=== PATIENT | male | born 1995 | race Caucasian/White ===

== ENCOUNTER 2016-08-15 22:06 | Emergency (ER) | payer SELFPAY ==
[~2016-08-15] VITALS: Ht 188 cm; Wt 62.4 kg
[~2016-08-15 22:06] MED LIST: AUGMENTIN875 MG PO; NAPROXEN500 MG PO; NORCO 5/3251 TABLET PO
[2016-08-15 23:22] LABS: HEMATOCRIT 46.1 % (38.0-50.0); MCH 28.3 PG (29.0-34.0); MCHC 33.4 G/DL (30.0-36.0); MCV 84.6 FL (86-99); MEAN PLAT.VOLUME 9.3 uM^3 (9.0-12.4); PLATELET COUNT 392 K/uL (156-360); RBC DIS.WIDTH-CV 13.2 % (11.8-14.6); RBC DIS.WIDTH-SD 40.6 % (39-53); RED BLOOD COUNT 5.45 M/uL (4.00-5.50); WHITE BLOOD COUNT 9.6 K/uL (4.1-10.2)
[2016-08-15 23:32] LABS: CHLORIDE 105 mEq/L (99-109); POTASSIUM 3.8 mEq/L (3.7-5.4); SODIUM 142 mEq/L (136-147)
[2016-08-15 23:34] LABS: GLUCOSE 82 mg/dL (70-99)
[2016-08-15 23:35] LABS: ANION GAP 12 MEQ/L (2-14)
[2016-08-15 23:37] LABS: GFR ESTIMATE (CALCULATED) > 59 mL/min/
[2016-08-15 23:38] LABS: UREA NITROGEN (BUN) 11 mg/dL (9-23)
[2016-08-15 23:44] LABS: TROP-I INTERPRETATION NEGATIVE; TROPONIN-I < 0.01 ng/mL (0.0-0.30)
[2016-08-16] MEDS ORDERED: VENTOLIN HFA18 GM IH (01:52)
[2016-08-16] MEDS ORDERED: NAPROXEN500 MG PO (01:52)
[2016-08-16 01:58] VITALS: BP 175/107
[2016-08-16 02:13] LABS: TROP-I INTERPRETATION NEGATIVE; TROPONIN-I < 0.01 ng/mL (0.0-0.30)
== END 2016-08-16 02:04 | disposition home or self-care (01) ==
LOC: EME 22:06
DX: R07.89 Other chest pain (principal); R06.00 Dyspnea, unspecified; I10 Essential (primary) hypertension; Z82.49 Family history of ischemic heart disease and other diseases of the circulatory system; Z87.891 Personal history of nicotine dependence
CPT/HCPCS: 71020; 80048; 84484; 85027; 93005; 99281; 99284

== ENCOUNTER 2016-08-30 10:18 | Emergency (ER) | payer OTHER ==
[~2016-08-30] VITALS: Ht 188 cm; Wt 166.0 kg
[~2016-08-30 10:18] MED LIST changes: +VENTOLIN HFA18 GM IH
[2016-08-30 12:00] LABS: HEMATOCRIT 46.7 % (38.0-50.0); MCH 28.4 PG (29.0-34.0); MCHC 33.8 G/DL (30.0-36.0); MCV 83.8 FL (86-99); MEAN PLAT.VOLUME 9.3 uM^3 (9.0-12.4); PLATELET COUNT 411 K/uL (156-360); RBC DIS.WIDTH-CV 13.1 % (11.8-14.6); RBC DIS.WIDTH-SD 39.7 % (39-53); RED BLOOD COUNT 5.57 M/uL (4.00-5.50)
[2016-08-30 12:21] LABS: CHLORIDE 108 mEq/L (99-109); POTASSIUM 4.7 mEq/L (3.7-5.4); SODIUM 139 mEq/L (136-147)
[2016-08-30 12:21] LABS: TROP-I INTERPRETATION NEGATIVE; TROPONIN-I < 0.01 ng/mL (0.0-0.30)
[2016-08-30 12:22] LABS: GLUCOSE 159 mg/dL (70-99)
[2016-08-30 12:24] LABS: ANION GAP 7 MEQ/L (2-14)
[2016-08-30 12:26] LABS: GFR ESTIMATE (CALCULATED) > 59 mL/min/
[2016-08-30 12:27] LABS: UREA NITROGEN (BUN) 17 mg/dL (9-23)
[2016-08-30 13:09] VITALS: BP 150/88
== END 2016-08-30 13:10 | disposition home or self-care (01) ==
LOC: EME 10:18
PROVIDERS: Nurse Practitioner Family
DX: R07.9 Chest pain, unspecified (principal)
CPT/HCPCS: 71020; 80048; 84484; 85027; 93005; 99281; 99283